=== PATIENT | male | born 1990 | race African-American/Black ===

== ENCOUNTER 2016-11-06 09:10 | Emergency (ER) | payer MEDICARE, OTHER | END 2016-11-06 10:17 | disposition home or self-care (01) | LOC: ER 09:10 | DX: M25.561 Pain in right knee (principal); Z88.8 Allergy status to other drugs, medicaments and biological substances | CPT/HCPCS: 73560-RT; 99283 ==

== ENCOUNTER 2016-12-06 15:06 | Emergency (ER) | payer MEDICARE, OTHER | END 2016-12-06 15:35 | disposition home or self-care (01) | LOC: ER 15:06 | DX: L25.5 Unspecified contact dermatitis due to plants, except food (principal); F31.9 Bipolar disorder, unspecified; Z88.8 Allergy status to other drugs, medicaments and biological substances | CPT/HCPCS: 93005; 96372; 99283 ==